=== PATIENT | female | born 1970 | race Caucasian/White ===

== ENCOUNTER → 2018-02-09 | Outpatient (CLI) | payer OTHER | END | disposition home or self-care (01) | LOC: CDC 12:35 | DX: Z01.810 Encounter for preprocedural cardiovascular examination (principal); C50.812 Malignant neoplasm of overlapping sites of left female breast; R00.1 Bradycardia, unspecified | CPT/HCPCS: 93000 ==

== ENCOUNTER 2018-02-18 09:10 | Day surgery (SDC) | payer OTHER ==
[~2018-02-18] VITALS: Ht 160 cm; Wt 62.0 kg
[~2018-02-18 09:10] MED LIST: AMBIEN10 MG PO; TAPAZOLE5 MG PO; TRANSDERM-SCOP1 EACH TD; TYLENOL PM EX-1 EACH PO; XANAX0.5 MG PO
[2018-02-18] MEDS ORDERED: TYLENOL EXTRA500 MG PO (10:18)
[2018-02-18 10:23] VITALS: BP 133/87
[2018-02-18 19:35] VITALS: BP 133/83
[2018-02-19 00:53] VITALS: BP 111/65
[2018-02-19 04:26] VITALS: BP 126/82
[2018-02-19 08:42] VITALS: BP 106/61
[2018-02-19 12:09] VITALS: BP 104/63
== END 2018-02-19 15:33 | disposition home or self-care (01) ==
LOC: SDC 09:10 → NUC 11:00 → SDC 11:00 → 2EAST 15:59 → 2SOUTH 15:59 → ENRESERV 16:00 → 2EAST 17:09
PROC: 0HHU0NZ Insertion of Tissue Expander into Left Breast, Open Approach (ICD-10-PCS; principal; 2018-02-18)
PROC: 07B60ZX Excision of Left Axillary Lymphatic, Open Approach, Diagnostic (ICD-10-PCS; principal; 2018-02-18)
PROC: 0HBU0ZZ Excision of Left Breast, Open Approach (ICD-10-PCS; principal; 2018-02-18)
DX: C50.812 Malignant neoplasm of overlapping sites of left female breast (principal); Z17.0 Estrogen receptor positive status [ER+]; E03.9 Hypothyroidism, unspecified; R00.1 Bradycardia, unspecified
CPT/HCPCS: 78195; 78999; 84702; 88309; 88331; A9541; G0378; J0690; J1100; J1170; J1885; J2250; J2405; J3010; S0020